=== PATIENT | male | born 1980 | race Caucasian/White ===

== ENCOUNTER → 2016-04-25 | Outpatient (CLI) | payer OTHER | LOC: M OUTALCOH 12:59 | PROVIDERS: ATTEND Psychiatry & Neurology Psychiatry | DX: F14.20 Cocaine dependence, uncomplicated (principal); F11.20 Opioid dependence, uncomplicated ==

== ENCOUNTER 2016-05-05 10:53 | Outpatient (RCR) | payer OTHER | END 2016-05-06 | LOC: M OUTALCOH 10:53 | PROVIDERS: ATTEND Psychiatry & Neurology Psychiatry | DX: F14.20 Cocaine dependence, uncomplicated (principal); F11.20 Opioid dependence, uncomplicated ==

== ENCOUNTER 2016-09-23 12:36 | Emergency (ER) | payer OTHER, SELFPAY ==
[~2016-09-23] VITALS: Ht 182.9 cm; Wt 68.2 kg
--- NOTE | 2016-09-23 15:14 | REP ---
RIGHT FOURTH DIGIT: Four views of the right 4th digit performed. There is soft tissue disruption at the tip of the digit. No fracture, dislocation or foreign body is seen. IMPRESSION: No evidence of acute fracture or foreign body. Signed by Kirit Keller MD 09/23/2016 04:47 P
[2016-09-23] MEDS ORDERED: ADACEL/BOOSTRIX VACCINE (DIPHTH/PERTUSS/ACELL/TETANUS)0.5ML SYR (90715) IM ONE (15:15)
[2016-09-23] MEDS ORDERED: PERCOCET 5MG/325MG TAB PO ONE (15:15)
[2016-09-23] MEDS ORDERED: PERC5TAB12 PO (16:06)
[2016-09-23] MEDS ORDERED: KEFL500C17 PO (16:06)
[2016-09-23 16:14] VITALS: BP 117/73
== END 2016-09-23 16:15 | disposition home or self-care (01) ==
LOC: M ED 12:36
DX: S61.214A Laceration without foreign body of right ring finger without damage to nail, initial encounter (principal); Z72.0 Tobacco use; W23.1XXA Caught, crushed, jammed, or pinched between stationary objects, initial encounter; Y92.89 Other specified places as the place of occurrence of the external cause; Y93.89 Activity, other specified; Y99.0 Civilian activity done for income or pay

== ENCOUNTER → 2017-01-03 | Outpatient (CLI) | payer MEDICAID, SELFPAY ==
[~2017-01-03] MED LIST: KEFL500C17 PO; PERC5TAB12 PO
== END ==
LOC: M OUTALCOH 07:55
PROVIDERS: ATTEND Psychiatry & Neurology Psychiatry
DX: F11.20 Opioid dependence, uncomplicated (principal); F13.20 Sedative, hypnotic or anxiolytic dependence, uncomplicated; F14.20 Cocaine dependence, uncomplicated

== ENCOUNTER 2017-01-13 09:57 | Outpatient (RCR) | payer MEDICAID, SELFPAY | END 2017-02-05 | LOC: M OUTALCOH 09:57 | DX: F14.20 Cocaine dependence, uncomplicated (principal); F11.20 Opioid dependence, uncomplicated; F13.20 Sedative, hypnotic or anxiolytic dependence, uncomplicated; F17.200 Nicotine dependence, unspecified, uncomplicated ==

== ENCOUNTER 2017-02-09 15:48 | Outpatient (RCR) | payer MEDICAID | END 2017-03-08 | LOC: M OUTALCOH 15:48 | DX: F14.20 Cocaine dependence, uncomplicated (principal); F11.20 Opioid dependence, uncomplicated; F13.20 Sedative, hypnotic or anxiolytic dependence, uncomplicated; F17.200 Nicotine dependence, unspecified, uncomplicated ==

== ENCOUNTER 2017-03-10 10:36 | Outpatient (RCR) | payer MEDICAID | END 2017-04-05 | LOC: M OUTALCOH 10:36 | DX: F14.20 Cocaine dependence, uncomplicated (principal); F11.20 Opioid dependence, uncomplicated; F13.20 Sedative, hypnotic or anxiolytic dependence, uncomplicated; F17.200 Nicotine dependence, unspecified, uncomplicated ==

== ENCOUNTER 2017-04-06 13:00 | Outpatient (RCR) | payer MEDICAID | END 2017-05-06 | LOC: M OUTALCOH 04-07 16:14 | DX: F14.20 Cocaine dependence, uncomplicated (principal); F11.20 Opioid dependence, uncomplicated; F13.20 Sedative, hypnotic or anxiolytic dependence, uncomplicated; F17.200 Nicotine dependence, unspecified, uncomplicated ==

== ENCOUNTER 2017-05-18 15:13 | Outpatient (RCR) | payer MEDICAID | END 2017-06-05 | LOC: M OUTALCOH 05-23 09:00 | DX: F14.20 Cocaine dependence, uncomplicated (principal); F11.20 Opioid dependence, uncomplicated; F13.20 Sedative, hypnotic or anxiolytic dependence, uncomplicated; F17.200 Nicotine dependence, unspecified, uncomplicated ==

== ENCOUNTER → 2017-06-03 | Outpatient (REF) | payer MEDICAID ==
[2017-06-03 18:37] LABS: APPEARANCE, URINE HAZY (CLEAR); BACTERIA, URINE AUTO NEGATIVE (NEGATIVE); BILIRUBIN, URINE AUTO 1+ (NEGATIVE); BLOOD, URINE BLOOD NEGATIVE (NEGATIVE); COLOR, URINE AMBER (YELLOW); GLUCOSE, URINE (UA) AUTO NEGATIVE (NEGATIVE); KETONE, URINE AUTO 2+ mg/dL (NEGATIVE); LEUKOCYTE ESTERASE, URINE AUTO NEGATIVE (NEGATIVE); MUCUS, URINE LARGE (NEGATIVE); NITRITE, URINE AUTO NEGATIVE (NEGATIVE); PROTEIN, URINE AUTO 2+ mg/dL (NEGATIVE); RBC, URINE AUTO 1 /HPF (0-3); SPECIFIC GRAVITY URINE AUTO 1.045 (1.002-1.035); SQUAMOUS EPITHELIAL CELL UR AU 0 /HPF (0-6); WBC, URINE AUTO 2 /HPF (0-3)
== END ==
LOC: M LAB REF 06-06 13:52
DX: N39.0 Urinary tract infection, site not specified (principal)

== ENCOUNTER 2017-06-07 10:13 | Outpatient (RCR) | payer MEDICAID | END 2017-07-06 | LOC: M OUTALCOH 10:13 | DX: F14.20 Cocaine dependence, uncomplicated (principal); F11.20 Opioid dependence, uncomplicated; F13.20 Sedative, hypnotic or anxiolytic dependence, uncomplicated; F17.200 Nicotine dependence, unspecified, uncomplicated ==

== ENCOUNTER → 2017-06-21 | Outpatient (CLI) | payer OTHER, MEDICAID ==
[2017-06-21 08:23] LABS: HEMATOCRIT 40.8 % (42.0-52.0); HEMOGLOBIN 13.7 g/dl (13.5-17.5); MEAN CORPUSCULAR HEMOGLOBIN 30.7 pg (27.0-33.0); MEAN CORPUSCULAR HGB CONC 33.6 g/dl (32.0-36.5); MEAN CORPUSCULAR VOLUME 91.5 fl (80.0-96.0); PLATELET COUNT, AUTOMATED 264 10^3/uL (150-450); RED BLOOD COUNT 4.46 10^6/uL (4.30-6.10); RED CELL DISTRIBUTION WIDTH 12.4 % (11.5-14.5); WHITE BLOOD COUNT 11.5 10^3/uL (4.0-10.0)
[2017-06-21 08:59] LABS: TOTAL 25(OH) VITAMIN D 59.5 NG/ML (30.0-100.0)
[2017-06-21 09:00] LABS: TESTOSTERONE 408 NG/DL (241-827)
[2017-06-21 09:01] LABS: ALBUMIN 3.6 GM/DL (3.2-5.2); ALKALINE PHOSPHATASE 92 U/L (45-117); ALT/SGPT 15 U/L (12-78); ANION GAP 3 MEQ/L (8-16); AST/SGOT 12 U/L (7-37); BILIRUBIN,TOTAL 0.4 MG/DL (0.2-1.0); BLOOD UREA NITROGEN 12 MG/DL (7-18); CALCIUM LEVEL 8.4 MG/DL (8.5-10.1); CARBON DIOXIDE LEVEL 30 MEQ/L (21-32); CHLORIDE LEVEL 109 MEQ/L (98-107); CREATININE FOR GFR 1.05 MG/DL (0.70-1.30); GLOMERULAR FILTRATION RATE > 60.0 (>60); GLUCOSE, FASTING 86 MG/DL (70-100); POTASSIUM SERUM 4.4 MEQ/L (3.5-5.1); SODIUM LEVEL 142 MEQ/L (136-145); THYROID STIMULATING HORMONE 0.871 uIU/ML (0.358-3.740); TOTAL PROTEIN 7.2 GM/DL (6.4-8.2)
== END ==
LOC: M LAB 07:51
DX: R53.83 Other fatigue (principal); D64.9 Anemia, unspecified
CPT/HCPCS: 84403

== ENCOUNTER 2017-07-07 13:02 | Outpatient (RCR) | payer MEDICAID | END 2017-08-05 | LOC: M OUTALCOH 13:02 | DX: F14.20 Cocaine dependence, uncomplicated (principal); F11.20 Opioid dependence, uncomplicated; F13.20 Sedative, hypnotic or anxiolytic dependence, uncomplicated; F17.200 Nicotine dependence, unspecified, uncomplicated ==

== ENCOUNTER 2017-08-18 13:00 | Outpatient (RCR) | payer MEDICAID | END 2017-09-05 | LOC: M OUTALCOH 13:00 | DX: F14.20 Cocaine dependence, uncomplicated (principal); F11.20 Opioid dependence, uncomplicated; F13.20 Sedative, hypnotic or anxiolytic dependence, uncomplicated; F17.200 Nicotine dependence, unspecified, uncomplicated ==

== ENCOUNTER 2017-10-16 08:50 | Outpatient (RCR) | payer MEDICAID | END 2017-11-05 | LOC: M OUTALCOH 08:50 | DX: F14.20 Cocaine dependence, uncomplicated (principal); F11.20 Opioid dependence, uncomplicated; F13.20 Sedative, hypnotic or anxiolytic dependence, uncomplicated; F17.200 Nicotine dependence, unspecified, uncomplicated ==

== ENCOUNTER 2017-11-09 15:00 | Outpatient (RCR) | payer MEDICAID | END 2017-12-06 | LOC: M OUTALCOH 15:00 | DX: F14.20 Cocaine dependence, uncomplicated (principal); F11.20 Opioid dependence, uncomplicated; F13.20 Sedative, hypnotic or anxiolytic dependence, uncomplicated; F17.200 Nicotine dependence, unspecified, uncomplicated ==

== ENCOUNTER 2017-11-28 16:52 | Emergency (ER) | payer OTHER, SELFPAY, MEDICAID ==
[2017-11-28] MEDS: MORPHINE 4 MG/ML 1ML VIAL/SYRINGE (J2270) IV (18:44)
[2017-11-28 18:45] LABS: BASO # 0.1 10^3/uL (0.0-0.2); BASO % 0.9 % (0.0-1.0); EOS # 0.3 10^3/uL (0.0-0.50); EOS % 2.5 % (0.0-3.0); HEMATOCRIT 42.3 % (42.0-52.0); HEMOGLOBIN 14.3 g/dl (13.5-17.5); IMMATURE GRANULOCYTE % 0.3 % (0-3.0); LYMPH # 3.6 10^3/uL (1.5-4.5); LYMPH % 31.8 % (24.0-44.0); MEAN CORPUSCULAR HEMOGLOBIN 31.2 pg (27.0-33.0); MEAN CORPUSCULAR HGB CONC 33.8 g/dl (32.0-36.5); MEAN CORPUSCULAR VOLUME 92.4 fl (80.0-96.0); MONO % 8.4 % (0.0-5.0); NEUTROPHILS # 6.4 10^3/uL (1.8-7.7); NEUTROPHILS % 56.1 % (36.0-66.0); PLATELET COUNT, AUTOMATED 294 10^3/uL (150-450); RED BLOOD COUNT 4.58 10^6/uL (4.30-6.10); WHITE BLOOD COUNT 11.3 10^3/uL (4.0-10.0)
[2017-11-28] MEDS: KETOROLAC 30 MG/ML VIAL (J1885) IV (18:47)
[2017-11-28] MEDS: NS 1,000 ML IV (18:47)
[2017-11-28 19:16] LABS: ANION GAP 5 MEQ/L (8-16); BLOOD UREA NITROGEN 13 MG/DL (7-18); C REACTIVE PROTEIN QUANTITATIV 0.85 MG/DL (0.00-0.30); CALCIUM LEVEL 9.2 MG/DL (8.5-10.1); CARBON DIOXIDE LEVEL 29 MEQ/L (21-32); CHLORIDE LEVEL 105 MEQ/L (98-107); CREATININE FOR GFR 1.04 MG/DL (0.70-1.30); GLOMERULAR FILTRATION RATE > 60.0 (>60); GLUCOSE, FASTING 85 MG/DL (70-100); POTASSIUM SERUM 3.9 MEQ/L (3.5-5.1); SODIUM LEVEL 139 MEQ/L (136-145)
[2017-11-28 19:19] LABS: LACTIC ACID SEPSIS PROTOCOL 1.9 MMOL/L (0.4-2.0)
[2017-11-28 19:42] LABS: ERYTHROCYTE SEDIMENTATION RATE 8 mm/hr (0-15)
== END 2017-11-28 19:29 | disposition left against medical advice (07) ==
LOC: M ED 16:52
DX: L03.116 Cellulitis of left lower limb (principal); K62.89 Other specified diseases of anus and rectum; F17.210 Nicotine dependence, cigarettes, uncomplicated
CPT/HCPCS: J1885

== ENCOUNTER → 2017-12-24 | Outpatient (CLI) | payer OTHER ==
[2017-12-24 11:41] LABS: HEMATOCRIT 44.2 % (42.0-52.0); HEMOGLOBIN 14.8 g/dl (13.5-17.5); MEAN CORPUSCULAR HEMOGLOBIN 30.8 pg (27.0-33.0); MEAN CORPUSCULAR HGB CONC 33.5 g/dl (32.0-36.5); MEAN CORPUSCULAR VOLUME 91.9 fl (80.0-96.0); PLATELET COUNT, AUTOMATED 235 10^3/uL (150-450); RED BLOOD COUNT 4.81 10^6/uL (4.30-6.10); WHITE BLOOD COUNT 6.6 10^3/uL (4.0-10.0)
[2017-12-24 12:04] LABS: ALBUMIN 3.9 GM/DL (3.2-5.2); ALBUMIN/GLOBULIN RATIO 1.05 (1.00-1.93); ALKALINE PHOSPHATASE 80 U/L (45-117); ALT/SGPT 17 U/L (12-78); ANION GAP 6 MEQ/L (8-16); AST/SGOT 13 U/L (7-37); BILIRUBIN,TOTAL 0.4 MG/DL (0.2-1.0); BLOOD UREA NITROGEN 11 MG/DL (7-18); CARBON DIOXIDE LEVEL 29 MEQ/L (21-32); CHLORIDE LEVEL 105 MEQ/L (98-107); GLOMERULAR FILTRATION RATE > 60.0 (>60); GLUCOSE, FASTING 80 MG/DL (70-100); POTASSIUM SERUM 4.3 MEQ/L (3.5-5.1); SODIUM LEVEL 140 MEQ/L (136-145); TOTAL PROTEIN 7.6 GM/DL (6.4-8.2)
[2017-12-24 13:31] LABS: CHLAMYDIA DNA AMPLIFICATION NEGATIVE (NEGATIVE); GC DNA AMPLIFICATION NEGATIVE (NEGATIVE)
[2017-12-25 11:11] LABS: HEPATITIS B SURFACE ANTIGEN NEGATIVE (NEGATIVE)
[2017-12-25 11:40] LABS: HIV 1&2 SCREEN CENTAUR NEGATIVE (NEGATIVE)
[2017-12-25 11:45] LABS: HEPATITIS C VIRUS ABY INDEX 8.8 INDEX (<0.8)
== END ==
LOC: M LAB 11:10
DX: F11.20 Opioid dependence, uncomplicated (principal); R94.31 Abnormal electrocardiogram [ECG] [EKG]
CPT/HCPCS: 93005

== ENCOUNTER → 2018-07-13 | Outpatient (CLI) | payer OTHER ==
[~2018-07-13] MED LIST changes: +CLEO300C2 PO; +NORC1TAB7 PO
[2018-07-13 13:08] LABS: BASO # 0.1 10^3/uL (0.0-0.2); BASO % 1.2 % (0.0-1.0); EOS # 0.2 10^3/uL (0.0-0.50); EOS % 2.3 % (0.0-3.0); HEMOGLOBIN 13.7 g/dl (13.5-17.5); LYMPH % 35.2 % (24.0-44.0); MEAN CORPUSCULAR HEMOGLOBIN 30.4 pg (27.0-33.0); MEAN CORPUSCULAR HGB CONC 33.4 g/dl (32.0-36.5); MEAN CORPUSCULAR VOLUME 90.9 fl (80.0-96.0); MONO # 0.7 10^3/uL (0.0-0.8); MONO % 8.2 % (0.0-5.0); NEUTROPHILS # 4.5 10^3/uL (1.8-7.7); PLATELET COUNT, AUTOMATED 295 10^3/uL (150-450); RED BLOOD COUNT 4.51 10^6/uL (4.30-6.10); WHITE BLOOD COUNT 8.6 10^3/uL (4.0-10.0)
[2018-07-13 13:13] LABS: APPEARANCE, URINE HAZY (CLEAR); BACTERIA, URINE AUTO NEGATIVE (NEGATIVE); BILIRUBIN, URINE AUTO NEGATIVE (NEGATIVE); BLOOD, URINE BLOOD NEGATIVE (NEGATIVE); COLOR, URINE YELLOW (YELLOW); GLUCOSE, URINE (UA) AUTO NEGATIVE (NEGATIVE); KETONE, URINE AUTO NEGATIVE (NEGATIVE); LEUKOCYTE ESTERASE, URINE AUTO NEGATIVE (NEGATIVE); MUCUS, URINE SMALL (NEGATIVE); NITRITE, URINE AUTO NEGATIVE (NEGATIVE); PROTEIN, URINE AUTO NEGATIVE (NEGATIVE); RBC, URINE AUTO 0 /HPF (0-3); SPECIFIC GRAVITY URINE AUTO 1.026 (1.002-1.035); SQUAMOUS EPITHELIAL CELL UR AU 0 /HPF (0-6); WBC, URINE AUTO 2 /HPF (0-3)
[2018-07-13 13:31] LABS: ALBUMIN 3.8 GM/DL (3.2-5.2); ALT/SGPT 19 U/L (12-78); BILIRUBIN,TOTAL 0.3 MG/DL (0.2-1.0); BLOOD UREA NITROGEN 22 MG/DL (7-18); CALCIUM LEVEL 8.7 MG/DL (8.5-10.1); CARBON DIOXIDE LEVEL 30 MEQ/L (21-32); CHLORIDE LEVEL 104 MEQ/L (98-107); CREATININE FOR GFR 1.03 MG/DL (0.70-1.30); GLOMERULAR FILTRATION RATE > 60.0 (>60); GLUCOSE, FASTING 89 MG/DL (70-100); POTASSIUM SERUM 4.9 MEQ/L (3.5-5.1); SODIUM LEVEL 139 MEQ/L (136-145); TOTAL PROTEIN 7.5 GM/DL (6.4-8.2)
[2018-07-13 13:41] LABS: HEPATITIS B SURFACE ANTIBODY NEGATIVE (POSITIVE)
[2018-07-13 14:17] LABS: HEPATITIS B SURFACE ANTIGEN NEGATIVE (NEGATIVE)
[2018-07-13 14:19] LABS: HEPATITIS B CORE ANTIBODY IGM NEGATIVE (NEGATIVE)
[2018-07-13 14:21] LABS: HEPATITIS A ANTIBODY IGM NEGATIVE (NEGATIVE)
[2018-07-13 14:32] LABS: HEPATITIS C VIRUS ABY INDEX 5.5 INDEX (<0.8)
== END ==
LOC: M LAB 12:27
PROVIDERS: ATTEND Physician Assistant Medical
DX: Z02.2 Encounter for examination for admission to residential institution (principal)

== ENCOUNTER → 2019-03-13 | Outpatient (CLI) | payer OTHER ==
[2019-03-13 12:34] LABS: HEMATOCRIT 46.1 % (42.0-52.0); HEMOGLOBIN 15.4 g/dl (13.5-17.5); MEAN CORPUSCULAR HEMOGLOBIN 29.6 pg (27.0-33.0); MEAN CORPUSCULAR HGB CONC 33.4 g/dl (32.0-36.5); MEAN CORPUSCULAR VOLUME 88.7 fl (80.0-96.0); PLATELET COUNT, AUTOMATED 279 10^3/uL (150-450); WHITE BLOOD COUNT 11.3 10^3/uL (4.0-10.0)
[2019-03-13 13:03] LABS: ALBUMIN 3.9 GM/DL (3.2-5.2); ALT/SGPT 41 U/L (12-78); BILIRUBIN,TOTAL 0.3 MG/DL (0.2-1.0); BLOOD UREA NITROGEN 13 MG/DL (7-18); CALCIUM LEVEL 8.9 MG/DL (8.5-10.1); CARBON DIOXIDE LEVEL 28 MEQ/L (21-32); CHLORIDE LEVEL 106 MEQ/L (98-107); CREATININE FOR GFR 1.21 MG/DL (0.70-1.30); GLOMERULAR FILTRATION RATE > 60.0 (>60); GLUCOSE, FASTING 105 MG/DL (70-100); POTASSIUM SERUM 4.4 MEQ/L (3.5-5.1); SODIUM LEVEL 139 MEQ/L (136-145); TOTAL PROTEIN 7.3 GM/DL (6.4-8.2)
[2019-03-13 13:26] LABS: HEPATITIS B SURFACE ANTIGEN NEGATIVE (NEGATIVE)
[2019-03-13 13:45] LABS: CHLAMYDIA DNA AMPLIFICATION NEGATIVE (NEGATIVE); GC DNA AMPLIFICATION NEGATIVE (NEGATIVE)
[2019-03-13 13:54] LABS: HIV 1&2 SCREEN CENTAUR NEGATIVE (NEGATIVE)
[2019-03-13 13:57] LABS: HEPATITIS C VIRUS ABY INDEX 5.2 INDEX (<0.8)
--- NOTE | 2019-03-15 20:02 | ECGEPIP ---
[facility] Test Date: 2019-03-13 Pat Name: DANA GUILLEN II Department: Room: - Gender: Male [employer]: RACHEAL : 1980 Requested By: Kirit Leiva Order Number: [id number] Reading MD: Angelina Molina Measurements Intervals [place] Rate: 71 P: 41 LA: 134 QRS: 40 QRSD: 90 T: 28 QT: 375 QTc: 407 Interpretive Statements SINUS RHYTHM SINCE 12/24/17 INCOMPLETE RIGHT BUNDLE BRANCH BLOCK IS NO LONGER PRESENT Electronically Signed on 03-15-2019 20:02:20 EST by Angelina Molina
== END ==
LOC: M LAB 10:59
PROVIDERS: ATTEND Family Medicine
DX: F11.20 Opioid dependence, uncomplicated (principal)

== ENCOUNTER 2019-11-24 13:04 | Emergency (ER) | payer OTHER ==
[~2019-11-24] VITALS: Ht 182.9 cm; Wt 88.4 kg
[2019-11-24] MEDS ORDERED: CLON0.2T (13:11)
[2019-11-24] MEDS ORDERED: FLUO20CA22 (13:11)
[2019-11-24] MEDS ORDERED: MIRT1TAB17 (13:11)
[2019-11-24] MEDS ORDERED: CEPH500C (13:11)
[2019-11-24 13:45] LABS: BASO # 0.1 10^3/uL (0.0-0.2); BASO % 0.5 % (0.0-1.0); EOS # 0.1 10^3/uL (0.0-0.5); HEMATOCRIT 49.7 % (42.0-52.0); HEMOGLOBIN 16.4 g/dl (13.5-17.5); LYMPH # 1.8 10^3/uL (1.5-5.0); LYMPH % 14.5 % (24.0-44.0); MEAN CORPUSCULAR HEMOGLOBIN 29.4 pg (27.0-33.0); MEAN CORPUSCULAR VOLUME 89.1 fl (80.0-96.0); MONO # 1.2 10^3/uL (0.0-0.8); MONO % 9.5 % (0.0-5.0); NEUTROPHILS # 9.4 10^3/uL (1.5-8.5); PLATELET COUNT, AUTOMATED 295 10^3/uL (150-450); RED BLOOD COUNT 5.58 10^6/uL (4.30-6.10); WHITE BLOOD COUNT 12.7 10^3/uL (4.0-10.0)
[2019-11-24 14:19] LABS: ERYTHROCYTE SEDIMENTATION RATE 7 mm/hr (0-15)
[2019-11-24] MEDS ORDERED: ceFAZolin SOD 1 GM in D5W MINI-BAG PLUS 50 ML IV ONE (14:30)
[2019-11-24] MEDS ORDERED: LIDOCAINE 1% MDV 20ML VIAL SC ONE (14:45)
[2019-11-24] MEDS ORDERED: BACT800T5 PO (15:11)
[2019-11-24] MEDS ORDERED: BACTRIM 160MG/800MG DS TAB PO ONE (15:15)
[2019-11-24 15:24] VITALS: BP 144/65
[2019-11-25] MEDS ORDERED: BACT800T5 PO (19:09)
== END 2019-11-24 15:26 | disposition home or self-care (01) ==
LOC: M ED 13:04
DX: L03.011 Cellulitis of right finger (principal); Z79.2 Long term (current) use of antibiotics; Z79.899 Other long term (current) drug therapy
CPT/HCPCS: 10060; 80047; 83605; 85025; 85652; 86140; 87040; 87070; 87076; 87205; 96365; 99283; J0690

== ENCOUNTER 2019-11-25 18:26 | Emergency (ER) | payer OTHER ==
[~2019-11-25] VITALS: Ht 182.9 cm; Wt 88.4 kg
[~2019-11-25 18:26] MED LIST changes: +BACT800T5 PO; +CEPH500C; +CLON0.2T; +FLUO20CA22; +MIRT1TAB17
[2019-11-25 18:27] VITALS: BP 132/70
[2019-11-25] MEDS ORDERED: BACT800T5 PO (19:09)
== END 2019-11-25 19:14 | disposition home or self-care (01) ==
LOC: M ED 18:26
DX: Z48.00 Encounter for change or removal of nonsurgical wound dressing (principal); L03.113 Cellulitis of right upper limb

== ENCOUNTER 2019-12-04 15:28 | Emergency (ER) | payer OTHER ==
[~2019-12-04] VITALS: Ht 182.9 cm; Wt 88.0 kg
[2019-12-04] MEDS ORDERED: ACET-897 PO (15:38)
[2019-12-04] MEDS ORDERED: SUBO8MIS SL (15:38)
[2019-12-04] MEDS ORDERED: SULF1TAB93 (15:38)
[2019-12-04] MEDS ORDERED: diphenhydrAMINE 50MG/ML VIAL (J1200) IV STA (16:18)
[2019-12-04] MEDS ORDERED: VANCOMYCIN HCL 1,000 MG, VIAL MATE ADAPTER 1 EACH in D5W 250 ML IV ONE (16:30)
[2019-12-04] MEDS ORDERED: VANCOMYCIN HCL 1,750 MG in IV FLUID PLACE HOLDER 1 EA IV ONE (16:30)
[2019-12-04] MEDS ORDERED: methylPREDNISolone 125MG 2ML VIAL IV ONE (16:30)
[2019-12-04] MEDS ORDERED: FAMOTIDINE INJ 20MG/2ML VIAL (S0028 PER 1) IVP ONE (16:30)
[2019-12-04] MEDS ORDERED: NS 1,000 ML IV ONE (16:30)
[2019-12-04] MEDS ORDERED: ACETAMINOPHEN 500 MG TAB PO ONE (17:00)
[2019-12-04 17:12] LABS: BASO % 0.2 % (0.0-1.0); EOS # 0.2 10^3/uL (0.0-0.5); EOS % 4.2 % (0.0-3.0); HEMOGLOBIN 14.7 g/dl (13.5-17.5); LYMPH # 0.4 10^3/uL (1.5-5.0); LYMPH % 9.7 % (24.0-44.0); MEAN CORPUSCULAR HEMOGLOBIN 29.6 pg (27.0-33.0); MEAN CORPUSCULAR HGB CONC 32.7 g/dl (32.0-36.5); MEAN CORPUSCULAR VOLUME 90.5 fl (80.0-96.0); MONO # 0.1 10^3/uL (0.0-0.8); MONO % 2.9 % (0.0-5.0); NEUTROPHILS # 3.8 10^3/uL (1.5-8.5); NEUTROPHILS % 82.3 % (36.0-66.0); PLATELET COUNT, AUTOMATED 127 10^3/uL (150-450); RED BLOOD COUNT 4.97 10^6/uL (4.30-6.10); WHITE BLOOD COUNT 4.6 10^3/uL (4.0-10.0)
[2019-12-04] MEDS ORDERED: VANCOMYCIN HCL 750 MG, VIAL MATE ADAPTER 1 EACH in D5W 250 ML IV ONE (17:30)
--- NOTE | 2019-12-04 17:41 | REP ---
INDICATION: SOB, fever. COMPARISON: None. FINDINGS: The technique utilized in obtaining the radiograph has magnified the cardiac silhouette and accentuated the interstitial markings. The superior mediastinal structures are midline. The cardiac silhouette is unremarkable in size, shape, and position. The diaphragmatic surfaces of the lungs are regular, and the costophrenic angles are clear. The pulmonary moseley are clear. The imaged osseous structures are intact. IMPRESSION: There is no acute cardiopulmonary disease. <Electronically signed by Chalo Barrientos > 12/04/19 [id number]
--- NOTE | 2019-12-04 17:43 | REP ---
INDICATION: SOB, fever, current purulent cellulitis 3rd finger. COMPARISON: 09/23/2016 FINDINGS: There is no acute fracture or destructive osseous lesion. There is no significant soft tissue swelling. IMPRESSION: Negative exam <Electronically signed by Chalo Barrientos > 12/04/19 1999
[2019-12-04 18:07] LABS: ERYTHROCYTE SEDIMENTATION RATE 11 mm/hr (0-15)
[2019-12-04] MEDS ORDERED: ALLE10TA62 PO (18:57)
[2019-12-04] MEDS ORDERED: PRED20TA PO (18:57)
[2019-12-04] MEDS ORDERED: CLEO300C2 PO (18:57)
[2019-12-04 19:22] VITALS: BP 118/86
== END 2019-12-04 19:26 | disposition home or self-care (01) ==
LOC: M ED 15:28
DX: L03.011 Cellulitis of right finger (principal); T50.905A Adverse effect of unspecified drugs, medicaments and biological substances, initial encounter; X58.XXXA Exposure to other specified factors, initial encounter; Y92.89 Other specified places as the place of occurrence of the external cause; Z79.899 Other long term (current) drug therapy; F17.210 Nicotine dependence, cigarettes, uncomplicated
CPT/HCPCS: 71045; 73140; 80047; 83605; 85025; 85652; 86140; 87040; 87880; 96365; 96366; 96375; 99284; J1200; J2930; J3370; U0003

== ENCOUNTER 2020-01-27 16:59 | Emergency (ER) | payer OTHER ==
[~2020-01-27] VITALS: Ht 182.9 cm; Wt 89.1 kg
[2020-01-27 16:59] VITALS: BP 157/72
[~2020-01-27 16:59] MED LIST changes: +ACET-897 PO; +ALLE10TA62 PO; +PRED20TA PO; +SUBO8MIS SL; +SULF1TAB93
== END 2020-01-27 19:06 | disposition home or self-care (01) ==
LOC: M ED 19:01
DX: R50.9 Fever, unspecified (principal); R52 Pain, unspecified; Z79.890 Hormone replacement therapy
CPT/HCPCS: 99282; U0003

== ENCOUNTER 2022-05-16 15:50 | Emergency (ER) | payer OTHER ==
[~2022-05-16] VITALS: Ht 182.9 cm; Wt 77.8 kg
[~2022-05-16 15:50] MED LIST changes: +BACTDSTA; -SULF1TAB93
[2022-05-16 15:51] VITALS: BP 116/72
[2022-05-16 18:07] LABS: BASO # 0.1 10^3/uL (0.0-0.2); BASO % 1.2 % (0.0-1.0); EOS # 0.2 10^3/uL (0.0-0.5); EOS % 4.2 % (0.0-3.0); HEMOGLOBIN 13.9 g/dl (13.5-17.5); LYMPH # 1.5 10^3/uL (1.5-5.0); LYMPH % 25.6 % (24.0-44.0); MEAN CORPUSCULAR HEMOGLOBIN 30.1 pg (27.0-33.0); MEAN CORPUSCULAR HGB CONC 33.9 g/dl (32.0-36.5); MEAN CORPUSCULAR VOLUME 88.7 fl (80.0-96.0); MONO # 0.8 10^3/uL (0.0-0.8); MONO % 14.7 % (2.0-8.0); NEUTROPHILS % 53.6 % (36.0-66.0); PLATELET COUNT, AUTOMATED 277 10^3/uL (150-450); RED BLOOD COUNT 4.62 10^6/uL (4.30-6.10); WHITE BLOOD COUNT 5.7 10^3/uL (4.0-10.0)
[2022-05-16 18:17] LABS: ERYTHROCYTE SEDIMENTATION RATE 37 mm/hr (0-15)
[2022-05-16 18:34] LABS: ALBUMIN 3.8 G/DL (3.2-5.2); ALKALINE PHOSPHATASE 154 U/L (46-116); ALT/SGPT 39 U/L (7.0-40); AST/SGOT 25 U/L (<34); BILIRUBIN,DIRECT < 0.1 MG/DL (<0.4); BILIRUBIN,TOTAL 0.2 MG/DL (0.3-1.2); BLOOD UREA NITROGEN 16 MG/DL (9-23); CALCIUM LEVEL 8.9 MG/DL (8.5-10.1); CARBON DIOXIDE LEVEL 30 MMOL/L (20-31); CHLORIDE LEVEL 99 MMOL/L (98-107); CREATININE FOR GFR 0.98 MG/DL (0.70-1.30); GLOMERULAR FILTRATION RATE > 60.0 (>60); GLUCOSE, FASTING 78 MG/DL (60-100); SODIUM LEVEL 134 MMOL/L (136-145); TOTAL PROTEIN 7.5 G/DL (5.7-8.2)
[2022-05-16] MEDS ORDERED: DALBAVANCIN 1,500 MG in D5W 250 ML IV ONE (19:55)
== END 2022-05-16 21:43 | disposition home or self-care (01) ==
LOC: M ED 15:50
DX: R21 Rash and other nonspecific skin eruption (principal); T88.7XXA Unspecified adverse effect of drug or medicament, initial encounter; F19.10 Other psychoactive substance abuse, uncomplicated; F17.200 Nicotine dependence, unspecified, uncomplicated
CPT/HCPCS: 71046; 80048; 80076; 83605; 85025; 85652; 86140; 87040; 96365; 99283; J0875

== ENCOUNTER 2023-09-25 13:36 | Emergency (ER) | payer OTHER, SELFPAY ==
[~2023-09-25] VITALS: Ht 182.9 cm; Wt 72.7 kg
[~2023-09-25 13:36] MED LIST changes: +FLUO-365; -FLUO20CA22
[2023-09-25] MEDS ORDERED: METH5TA PO (13:47)
[2023-09-25 15:14] LABS: BASO # 0.1 10^3/uL (0.0-0.2); BASO % 0.9 % (0.0-1.0); EOS # 0.2 10^3/uL (0.0-0.5); HEMATOCRIT 42.2 % (42.0-52.0); HEMOGLOBIN 14.4 g/dl (13.5-17.5); LYMPH # 2.5 10^3/uL (1.5-5.0); LYMPH % 30.3 % (24.0-44.0); MEAN CORPUSCULAR HEMOGLOBIN 30.4 pg (27.0-33.0); MEAN CORPUSCULAR HGB CONC 34.1 g/dl (32.0-36.5); MONO # 0.8 10^3/uL (0.0-0.8); MONO % 9.2 % (2.0-8.0); NEUTROPHILS # 4.7 10^3/uL (1.5-8.5); NEUTROPHILS % 57.4 % (36.0-66.0); PLATELET COUNT, AUTOMATED 241 10^3/uL (150-450); RED BLOOD COUNT 4.74 10^6/uL (4.30-6.10); WHITE BLOOD COUNT 8.2 10^3/uL (4.0-10.0)
[2023-09-25 15:54] LABS: ALBUMIN 3.6 G/DL (3.2-5.2); ALKALINE PHOSPHATASE 121 U/L (46-116); ALT/SGPT 27 U/L (7.0-40); AST/SGOT 33 U/L (<34); BILIRUBIN,DIRECT < 0.1 MG/DL (<0.4); BILIRUBIN,TOTAL 0.3 MG/DL (0.3-1.2); BLOOD UREA NITROGEN 17 MG/DL (9-23); CALCIUM LEVEL 9.1 MG/DL (8.5-10.1); CARBON DIOXIDE LEVEL 24 MMOL/L (20-31); CHLORIDE LEVEL 107 MMOL/L (98-107); CK-MB VALUE MASS 4.1 NG/ML (<3.6); CREATININE FOR GFR 0.78 MG/DL (0.70-1.30); GLOMERULAR FILTRATION RATE > 60.0 (>60); GLUCOSE, FASTING 96 MG/DL (60-100); POTASSIUM SERUM 4.6 MMOL/L (3.5-5.1); SODIUM LEVEL 135 MMOL/L (136-145); THYROID STIMULATING HORMONE 1.621 uIU/ML (0.55-4.78); TOTAL PROTEIN 7.5 G/DL (5.7-8.2)
[2023-09-25] MEDS ORDERED: ISOVUE-370 76% 100ML VIAL As Ordered ONE (15:57)
[2023-09-25 15:59] LABS: CPK CREATINE PHOSPHOKINASE 1305 U/L (46-171); MB/CK RELATIVE INDEX 0.31 (< OR =4)
[2023-09-25 16:10] LABS: CK-MB VALUE MASS 4.8 NG/ML (<3.6)
[2023-09-25] MEDS: PANTOPRAZOLE 40MG VIAL IV ONE (16:21)
[2023-09-25] MEDS: ASPIRIN 81MG CHEW TABLET PO ONE (16:21)
[2023-09-25 16:23] LABS: INR 0.9; PARTIAL THROMBOPLASTIN TIME 29.3 SECONDS (24.8-34.2); PROTHROMBIN TIME 11.9 SECONDS (12.5-14.5)
[2023-09-25 16:32] LABS: MB/CK RELATIVE INDEX 0.31 (< OR =4)
[2023-09-25] MEDS: MAALOX 30 ML SUSP *UDC PO ONE (16:42)
[2023-09-25] MEDS: NS 1,000 ML IV SCH (16:42)
[2023-09-25] MEDS: CLOPIDOGREL 300 MG TAB (PLAVIX) PO ONE (17:43)
[2023-09-25] MEDS: HEPARIN SOD (PORCINE) 5000UNITS/ML 1ML VIAL/SYRINGE IV ONE (17:48)
[2023-09-25] MEDS: HEPARIN DRIP 25,000 UNITS in IV 1 EA IV SCH (17:52)
[2023-09-25 18:37] VITALS: BP 122/73; TEMP 97.6; O2SAT 96
== END 2023-09-25 18:47 | disposition short-term general hospital (02) ==
LOC: M ED 13:36
DX: I21.4 Non-ST elevation (NSTEMI) myocardial infarction (principal); F17.210 Nicotine dependence, cigarettes, uncomplicated; F12.10 Cannabis abuse, uncomplicated; Z79.899 Other long term (current) drug therapy
CPT/HCPCS: 71046; 71275; 80048; 80076; 82550; 82553; 84439; 84443; 84484; 85025; 85610; 85730; 93005; 93041; 94760; 96361; 96365; 96374; 96375; 99285; J2470; Q9967

== ENCOUNTER 2023-10-28 13:35 | Emergency (ER) | payer OTHER ==
[~2023-10-28] VITALS: Ht 182.9 cm; Wt 71.3 kg
[~2023-10-28 13:35] MED LIST changes: +METH5TA PO
[2023-10-28] MEDS ORDERED: CLOP75TA2 PO (13:52)
[2023-10-28] MEDS ORDERED: NITR0.4S14 SL (13:52)
[2023-10-28] MEDS ORDERED: ASPI-226 PO (13:52)
[2023-10-28] MEDS ORDERED: ATOR80TA59 PO (13:52)
[2023-10-28] MEDS ORDERED: METH-1177 PO (13:52)
[2023-10-28] MEDS ORDERED: NITROGLYCERIN 0.4MG SUBL TABLET SL PRN (14:00)
[2023-10-28 14:22] LABS: HEMOGLOBIN 15.7 g/dl (13.5-17.5); MEAN CORPUSCULAR HEMOGLOBIN 30.3 pg (27.0-33.0); MEAN CORPUSCULAR HGB CONC 34.9 g/dl (32.0-36.5); MEAN CORPUSCULAR VOLUME 86.7 fl (80.0-96.0); PLATELET COUNT, AUTOMATED 241 10^3/uL (150-450); RED BLOOD COUNT 5.19 10^6/uL (4.30-6.10); WHITE BLOOD COUNT 7.9 10^3/uL (4.0-10.0)
[2023-10-28] MEDS: ASPIRIN 81MG CHEW TABLET PO ONE (14:26)
[2023-10-28 14:38] LABS: INR 0.94; PARTIAL THROMBOPLASTIN TIME 23.9 SECONDS (24.8-34.2); PROTHROMBIN TIME 12.3 SECONDS (12.5-14.5)
[2023-10-28 14:53] LABS: ALBUMIN 4.3 G/DL (3.2-5.2); ALKALINE PHOSPHATASE 142 U/L (46-116); ALT/SGPT 61 U/L (7.0-40); AST/SGOT 31 U/L (<34); BILIRUBIN,DIRECT 0.2 MG/DL (<0.4); BILIRUBIN,TOTAL 0.6 MG/DL (0.3-1.2); BLOOD UREA NITROGEN 16 MG/DL (9-23); CALCIUM LEVEL 9.4 MG/DL (8.5-10.1); CARBON DIOXIDE LEVEL 26 MMOL/L (20-31); CHLORIDE LEVEL 106 MMOL/L (98-107); CK-MB VALUE MASS < 1.0 NG/ML (<3.6); CREATININE FOR GFR 0.86 MG/DL (0.70-1.30); GLOMERULAR FILTRATION RATE > 60.0 (>60); GLUCOSE, FASTING 90 MG/DL (60-100); POTASSIUM SERUM 3.8 MMOL/L (3.5-5.1); SODIUM LEVEL 138 MMOL/L (136-145); TOTAL PROTEIN 8.6 G/DL (5.7-8.2)
[2023-10-28 14:57] LABS: THYROID STIMULATING HORMONE 1.029 uIU/ML (0.55-4.78)
[2023-10-28 14:58] LABS: FREE T4 1.33 NG/DL (0.89-1.76)
[2023-10-28 15:01] LABS: ATYPICAL LYMPH 16 % (0-5); EOSINOPHILS 1 % (0-3); LYMPHOCYTES 19 % (16-44); MONOCYTES 3 % (0-5); NEUTROPHILS 61 % (28-66); PLATELET ESTIMATE NORMAL (NORMAL)
[2023-10-28 15:28] LABS: CPK CREATINE PHOSPHOKINASE 307 U/L (46-171); MB/CK RELATIVE INDEX 0.32 (< OR =4)
[2023-10-28] MEDS ORDERED: ISOVUE-370 76% 100ML VIAL As Ordered ONE (17:25)
[2023-10-28 18:03] LABS: CK-MB VALUE MASS < 1.0 NG/ML (<3.6)
[2023-10-28 18:04] LABS: CPK CREATINE PHOSPHOKINASE 252 U/L (46-171); MB/CK RELATIVE INDEX 0.39 (< OR =4)
[2023-10-28] MEDS ORDERED: OMEP40CA4 PO (18:30)
[2023-10-28 18:40] VITALS: BP 138/73; TEMP 98.2; O2SAT 95
== END 2023-10-28 18:46 | disposition home or self-care (01) ==
LOC: M ED 13:35
DX: R07.9 Chest pain, unspecified (principal); I45.81 Long QT syndrome; I25.2 Old myocardial infarction; F17.210 Nicotine dependence, cigarettes, uncomplicated; Z88.2 Allergy status to sulfonamides; Z88.8 Allergy status to other drugs, medicaments and biological substances; Z79.1 Long term (current) use of non-steroidal anti-inflammatories (NSAID); Z79.899 Other long term (current) drug therapy
CPT/HCPCS: 36415; 71046; 71275; 80048; 80076; 82550; 82553; 83880; 84439; 84443; 84484; 85025; 85610; 85730; 93005; 93041; 94760; 99285; Q9967